=== PATIENT | female | born 1985 | race Caucasian/White ===

== ENCOUNTER → 2016-08-30 | Outpatient (CLI) | payer BC ==
[2016-08-30 10:00] LABS: CH 30.8; CHCM 33.3; HCT 34.5 % (34.0-46.0); HDW 2.32; HGB 11.7 gm/dL (11.4-16.0); MCH 31.4 pg (25.0-35.0); MCHC 33.9 g/dL (31.0-37.0); MCV 92.8 fL (80.0-100.0); Mean Platelet Volume 9.9; RBC 3.72 m/uL (3.80-5.40); WBC 8.9 k/uL (3.8-10.6)
== END | disposition home or self-care (01) ==
LOC: LABWHC1 08:18
PROVIDERS: ATTEND Obstetrics & Gynecology
DX: Z34.82 Encounter for supervision of other normal pregnancy, second trimester (principal)
CPT/HCPCS: 36415; 82950; 85027

== ENCOUNTER 2016-10-17 10:44 | Inpatient (IN) | payer BC, OTHER ==
[2016-10-17] MEDS ORDERED: PNEUMONIA PROTOCOL UTILIZED 1 EACH MISC PO PRN ×2 (12:55→12:56)
[2016-10-17] MEDS: SODIUM CHLORIDE 0.9% 1,000 ML IV SCH (14:00)
[2016-10-17] MEDS: IPRATROPIUM-ALBUTEROL 3 ML NEB INHALATION PRN ×2 (14:10→21:36)
[2016-10-17 14:48] VITALS: BMI 34.2
[2016-10-17] MEDS ORDERED: predniSONE 20 MG TAB PO STA (15:41)
[2016-10-17] MEDS ORDERED: HEPARIN SODIUM,PORCINE 5,000 UNIT/ML 1 ML VIAL SQ SCH (16:00)
[2016-10-17 16:07] LABS: Basophils % (A) 0 %; CH 31.1; CHCM 33.7; Eosinophils # (A) 0.1 k/uL (0-0.7); Eosinophils % (A) 1 %; HCT 35.5 % (34.0-46.0); HDW 2.51; HGB 11.9 gm/dL (11.4-16.0); Luc # (Auto) 0.16; Luc % (Auto) 1; Lymphocytes # (A) 1.9 k/uL (1.0-4.8); Lymphocytes % (A) 16 %; MCH 31.1 pg (25.0-35.0); MCHC 33.6 g/dL (31.0-37.0); MCV 92.6 fL (80.0-100.0); Mean Platelet Volume 11.9; Monocytes # (A) 0.5 k/uL (0-1.0); Monocytes % (A) 4 %; Neutrophils # (A) 8.9 k/uL (1.3-7.7); Neutrophils % (A) 77 %; RBC 3.84 m/uL (3.80-5.40); RDW 13.2 % (11.5-15.5); WBC 11.6 k/uL (3.8-10.6); WBC (Perox) 12.18
[2016-10-17] MEDS: IPRATROPIUM-ALBUTEROL 3 ML NEB INHALATION SCH ×2 (16:15→20:03)
[2016-10-17 16:17] LABS: ALT 28 U/L (9-52); AST 34 U/L (14-36); Alkaline Phosphatase 110 U/L (38-126); Anion Gap 10 mmol/L; Blood Urea Nitrogen 3 mg/dL (7-17); Calcium 10.7 mg/dL (8.4-10.2); Carbon Dioxide 21 mmol/L (22-30); Chloride 106 mmol/L (98-107); Glucose 95 mg/dL (74-99); Non-African American GFR(MDRD) >60 (>60 ml/min/1.73 sqM); Potassium 3.4 mmol/L (3.5-5.1); Sodium 137 mmol/L (137-145); Total Bilirubin 0.5 mg/dL (0.2-1.3); Total Protein 6.5 g/dL (6.3-8.2)
--- NOTE | 2016-10-17 16:30 | P.OBCN ---
History of Present Illness Consult date: 10/17/16 Requesting physician: Herman Nunez Reason for consult: other (31 weeks 3 days with influenza B and bronchitis) Chief complaint: shortness of breath and cough History of present illness: 31 year old presented to her pcp with cough for a week and general fatigue. no fever/chills, N/V, body aches. good movement, no contractions. She has had an uncomplicated and care with Dr Coffey. Review of Systems All systems: negative Constitutional: Denies chills, Denies fever Eyes: denies blurred vision, denies pain Ears, nose, mouth and throat: Denies headache, Denies sore throat Cardiovascular: Reports shortness of breath, Denies chest pain Respiratory: Reports cough, Reports wheezing Gastrointestinal: Denies abdominal pain, Denies diarrhea, Denies nausea, Denies vomiting Genitourinary: Denies dysuria, Denies hematuria Musculoskeletal: Denies myalgias Integumentary: Denies pruritus, Denies rash Neurological: Denies numbness, Denies weakness Psychiatric: Denies anxiety, Denies depression Endocrine: Denies fatigue, Denies weight change Past Medical History Past Medical History: No Reported History History of Any Multi-Drug Resistant Organisms: None Reported Additional Past Surgical History / Comment(s): leep procedure and sinus surgery Past Anesthesia/Blood Transfusion Reactions: No Reported Reaction Past Psychological History: Anxiety Additional Psychological History / Comment(s): pt is weaned off meds for duration of . using support systems for now. " hasnt been too bad" Smoking Status: Current every day smoker Past Alcohol Use History: None Reported Past Drug Use History: None Reported - Past Family History Mother Family Medical History: No Reported History Father Family Medical History: Hyperlipidemia, Hypertension Medications and Allergies Home Medications Medication Instructions Recorded Confirmed Type Acetaminophen Tab [Tylenol Tab] 500 mg PO Q6H 10/17/16 10/17/16 History Albuterol Nebulized [Ventolin 2.5 mg INHALATION RT-Q6H PRN 10/17/16 10/17/16 History Nebulized] Pnv with Ca,No.72/Iron/FA [Pnv 1 tab PO DAILY 10/17/16 10/17/16 History Plus Multivit Tab] diphenhydrAMINE HCL [Benadryl] 50 mg PO HS 10/17/16 10/17/16 History Allergies Allergy/AdvReac Type Severity Reaction Status Date / Time Sulfa (Sulfonamide Allergy Severe Rash/Hives Verified 10/17/16 14:09 Antibiotics) azithromycin [From Zithromax] AdvReac Intermediate Nausea & Verified 10/17/16 14 :09 Vomiting loratadine [From Claritin] AdvReac Intermediate Unknown Verified 10/17/16 14:09 Childhood Exam Osteopathic Statement: *. No significant issues noted on an osteopathic structural exam other than those noted in the History and Physical/Consult. - Vital Signs Vital signs: Vital Signs Temp Pulse Pulse Resp BP Pulse Ox 10/17/16 16:16 76 10/17/16 15:55 98.4 F 79 19 146/78 94 L 10/17/16 14:27 82 10/17/16 14:11 76 10/17/16 11:39 97.1 F L 97 20 131/96 96 Intake and Output 10/17/16 10/17/16 10/17/16 06:59 14:59 22:59 Intake Total 250 Balance 250 Intake: Oral 250 Other: # Voids 2 Weight 92 kg Patient Weight 10/18/16 06:59 Weight 92 kg Abdomen: soft, gravid, nontender, palpable movement Extremeties: neg yenifer's Results Result Diagrams: 10/17/16 13:36 10/17/16 13:36 Abnormal Lab Results - Last 24 Hours (Table) 10/17/16 10/17/16 10/17/16 Range/Units 13:36 13:36 13:36 WBC 11.6 H (3.8-10.6) k/uL Neutrophils # 8.9 H (1.3-7.7) k/uL Potassium 3.4 L (3.5-5.1) mmol/L Carbon Dioxide 21 L (22-30) mmol/L BUN 3 L (7-17) mg/dL Calcium 10.7 H (8.4-10.2) mg/dL C-Reactive Protein 18.8 H (<10.0) mg/L Influenza Type B (PCR) (Not Detectd) 10/17/16 Range/Units 13:45 WBC (3.8-10.6) k/uL Neutrophils # (1.3-7.7) k/uL Potassium (3.5-5.1) mmol/L Carbon Dioxide (22-30) mmol/L BUN (7-17) mg/dL Calcium (8.4-10.2) mg/dL C-Reactive Protein (<10.0) mg/L Influenza Type B (PCR) Detected H (Not Detectd) Assessment and Plan (1) Influenza B Status: Acute (2) Bronchitis Status: Acute (3) Third trimester at less than 36 weeks Status: Acute Plan: 1. I counselled the patient on the safety of chest x-ray in and she is willing to have one 2. we discussed Dr Nunez's plan of oral steroids and the safety of this in 3. I would recommend Tamiflu for her even though the time of symptom onset is a week. The recommendation is still to start tamiflu in the patient 4. NST every shift.
--- NOTE | 2016-10-17 16:55 | HP ---
DATE OF ADMISSION: 10/17/2016 Patient was directly admitted from Dr. Blanco Bridges's office. Dr. Blanco Bridges called me earlier today morning about this 31-year-old female, 32 weeks' , who was dealing with an upper respiratory illness along with asthma for about a week, and patient was having shortness of breath, wheezing and rhonchorous breath sounds. I was told patient has pneumonia, although clinically patient has rhonchorous breath sounds does not have any pneumonic infiltrate. Patient is found to have influenza B here. Patient was coughing, unable to bring up anything. Patient appears to have asthmatic bronchitis, although she does not exactly need antibiotics. I will go ahead and continue with Rocephin because of her status. Also, as we are not getting a chest x-ray, I do not strongly believe patient will need a chest x-ray. Because of her status, because of the radiation exposure concern, we will not obtain any chest x-ray at this point of time. Patient will be started on Tamiflu. Patient denied any fever or chills. Cough as mentioned above. I do not have any laboratory data available yet. Patient's basic lab data was already ordered. Sputum cultures were ordered and blood cultures were ordered. Other lab data is unavailable. Patient will be started on Tamiflu as well. REVIEW OF SYSTEMS: CONSTITUTIONAL: No fever, no malaise, no fatigue. HEENT: No recent visual problems or hearing problems. Denied any sore throat. CARDIOVASCULAR: No chest pain, orthopnea, PND, no palpitations, no syncope. PULMONARY: As described in HPI. GASTROINTESTINAL: No diarrhea, no nausea, no vomiting, no abdominal pain. Normoactive bowel sounds. NEUROLOGICAL: No headaches, no weakness, no numbness. HEMATOLOGICAL: Denies any bleeding or petechiae. GENITOURINARY: Denies any burning micturition, frequency, or urgency. MUSCULOSKELETAL/RHEUMATOLOGICAL: Denies any joint pain, swelling, or any muscle pain. ENDOCRINE: Denies any polyuria or polydipsia. The rest of the 14 point review of systems is negative. Home medications include: 1. Albuterol. 2. Diphenhydramine. 3. Acetaminophen. 4. Multivitamin supplementation. PAST MEDICAL HISTORY: Asthma. SOCIAL HISTORY: Patient does smoke, continues to smoke. Denied any alcohol abuse or any drug abuse. FAMILY HISTORY: Denied any family history of hypertension or diabetes mellitus. PHYSICAL EXAMINATION: VITAL SIGNS: Temperature 97.1, pulse of 97, respiratory rate of 20. Blood pressure is 131/76. Saturating at 96% on room air. GENERAL: The patient is alert and oriented x3, not in any acute distress. Well developed, well nourished. HEENT: Pupils are round and equally reacting to light. EOMI. No scleral icterus. No conjunctival pallor. Normocephalic, atraumatic. No pharyngeal erythema. No thyromegaly. CARDIOVASCULAR: S1 and S2 present. No murmurs, rubs, or gallops. PULMONARY: Patient has bilateral rhonchorous breath sounds with expiratory wheezing. No crackles were appreciated. Patient does not have any bronchophony or egophony. ABDOMEN: Patient is at 32 weeks. Bowel sounds are present. MUSCULOSKELETAL: No joint swelling or deformity. EXTREMITIES: No cyanosis, clubbing, or pedal edema. NEUROLOGICAL: Gross neurological examination did not reveal any focal deficits. SKIN: No rashes. LABORATORY DATA: None available. We are not doing a chest x-ray at this point of time because of her status. ASSESSMENT AND PLAN: 1. Status asthmaticus or acute asthma exacerbation. Patient appears to have chronic intermittent asthma. I cannot grade the severity of chronic intermittent asthma, as I am not her primary care physician. Patient will be started on systemic steroids in the form of oral prednisone. Albuterol ipratropium will be continued. Patient is on Rocephin at this point of time, although there is no overt evidence that patient has bacterial bronchitis or pneumonia. Will not discharge her on any antibiotic upon discharge. 2. , 32 weeks, because of which I consulted OB Service. 3. Nicotine abuse. Counseling was provided.
[2016-10-17] MEDS: ACETAMINOPHEN TAB 325 MG TAB PO PRN (17:30)
[2016-10-17] MEDS: OSELTAMIVIR 75 MG CAP PO SCH (21:16)
--- NOTE | 2016-10-17 22:12 | XR ---
EXAMINATION TYPE: XR chest 2V DATE OF EXAM: 10/17/2016 8:15 PM COMPARISON: NONE HISTORY: Bronchitis, cough TECHNIQUE: Frontal and lateral views of the chest are obtained. FINDINGS: There is no focal air space opacity, pleural effusion, or pneumothorax seen. The cardiac silhouette size is within normal limits. The osseous structures are intact. IMPRESSION: No acute cardiopulmonary process.
[2016-10-18] MEDS: SODIUM CHLORIDE 0.9% 1,000 ML IV SCH (01:47)
[2016-10-18] MEDS: ACETAMINOPHEN TAB 325 MG TAB PO PRN (06:27)
[2016-10-18] MEDS: OSELTAMIVIR 75 MG CAP PO SCH (08:12)
--- NOTE | 2016-10-18 10:57 | P.PN ---
Progress Note - Text 31 year old at 31 weeks 4 days admitted with influenza B and possible exacerbation of asthma/bronchitis. She is on oral steroids, tamiflu, breathing treatments, Rocephin IV. Feeling better today but still coughing and expiratory wheezes. NSTs have been reactive and she will continue to get those every shift until discharge.
[2016-10-18] MEDS: IPRATROPIUM-ALBUTEROL 3 ML NEB INHALATION SCH ×2 (11:05→11:08)
[2016-10-18] MEDS ORDERED: predniSONE 20 MG TAB PO SCH (11:15)
[2016-10-18 14:18] VITALS: BP 140/80; PULSE 72; RESP 18; TEMP 98.1
--- NOTE | 2016-10-18 20:09 | DS ---
DATE OF ADMISSION: 10/17/2016 DATE OF DISCHARGE: 10/18/2016 The patient is a pleasant 31-year-old female admitted from Dr. Blanco Bridges's office for asthma exacerbation. Patient had significant improvement in her respiratory status. She is still wheezing a little bit and still getting short of breath upon ambulation, although patient is saturating well and wanted to be discharged. The patient will be discharged on weaning dose of steroids. We did get a chest x-ray which did not show any pneumonic process. Patient has bronchitis secondary to influenza B. The patient will be discharged on Tamiflu. I do not believe patient has any bacterial bronchitis, because of which I do not believe patient will need any antibiotics at this point of time. Patient will continue her albuterol and we will add Symbicort to her inhalers. Once she is done with systemic steroids she can start using ( ). The patient was seen and examined on the day of discharge. GENERAL: The patient is alert and oriented x3, not in any acute distress. Well developed, well nourished. HEENT: Pupils are round and equally reacting to light. EOMI. No scleral icterus. No conjunctival pallor. Normocephalic, atraumatic. No pharyngeal erythema. No thyromegaly. CARDIOVASCULAR: S1 and S2 present. No murmurs, rubs, or gallops. PULMONARY: Minimal expiratory wheezing. Rhonchorous breath sounds yesterday which improved today. ABDOMEN: Soft, nontender, nondistended, normoactive bowel sounds. No palpable organomegaly. MUSCULOSKELETAL: No joint swelling or deformity. EXTREMITIES: No cyanosis, clubbing, or pedal edema. NEUROLOGICAL: Gross neurological examination did not reveal any focal deficits. SKIN: No rashes. LABORATORY DATA: Significant for elevated WBC count of 11,600, that is from yesterday and the systemic steroids. ASSESSMENT AND PLAN: 1. Acute asthma exacerbation status asthmaticus and chronic intermittent asthma. 2. at 32 weeks. 3. Influenza B. 4. Bronchitis. 5. Nicotine abuse for which counseling was provided. Patient will be discharged today. Patient will follow with Dr. Blanco Bridges in 3 to 5 days. Activity as tolerated. Regular diet. Spent greater than 35 minutes in total discharge process.
== END 2016-10-18 14:59 | disposition home or self-care (01) | DRG 781 ==
LOC: 6PED 10:49
PROVIDERS: ADMIT Internal Medicine; ATTEND Internal Medicine
DX: O99.513 Diseases of the respiratory system complicating pregnancy, third trimester (principal); J45.22 Mild intermittent asthma with status asthmaticus; J10.1 Influenza due to other identified influenza virus with other respiratory manifestations; O99.333 Smoking (tobacco) complicating pregnancy, third trimester; F17.200 Nicotine dependence, unspecified, uncomplicated; F41.9 Anxiety disorder, unspecified; Z79.899 Other long term (current) drug therapy; Z3A.32 32 weeks gestation of pregnancy
CPT/HCPCS: 71020; 80053; 85025; 86140; 87040; 87502; 94640

== ENCOUNTER 2016-12-03 01:16 | Inpatient (IN) | payer OTHER ==
[2016-12-03] MEDS ORDERED: OXYTOCIN 10 UNIT/ML 1 ML VIAL IM PRN (01:36)
[2016-12-03] MEDS ORDERED: TERBUTALINE 1 MG/ML VIAL SQ PRN (01:36)
[2016-12-03] MEDS ORDERED: METHYLERGONOVINE 0.2 MG/ML 1 ML AMP IM PRN (01:36)
[2016-12-03] MEDS ORDERED: CARBOPROST TROMETHAMINE 250 MCG/ML 1 ML AMP IM PRN (01:36)
[2016-12-03] MEDS ORDERED: LIDOCAINE 1% (PF) 10 MG/ML (30 ML SDV) SQ PRN (01:36)
[2016-12-03] MEDS ORDERED: LACTATED RINGERS 1,000 ML IV SCH (01:45)
[2016-12-03] MEDS ORDERED: OXYTOCIN 20 UNITS/1000 ML NS 1,000 ML IV SCH (01:45)
[2016-12-03 01:57] LABS: Basophils % (A) 0 %; CH 31.4; CHCM 34.7; Eosinophils # (A) 0.2 k/uL (0-0.7); Eosinophils % (A) 2 %; HCT 37.1 % (34.0-46.0); HDW 2.63; HGB 12.3 gm/dL (11.4-16.0); Luc # (Auto) 0.27; Luc % (Auto) 2; Lymphocytes # (A) 2.6 k/uL (1.0-4.8); Lymphocytes % (A) 22 %; MCH 30.1 pg (25.0-35.0); MCHC 33.1 g/dL (31.0-37.0); MCV 91.1 fL (80.0-100.0); Mean Platelet Volume 10.5; Monocytes # (A) 0.6 k/uL (0-1.0); Monocytes % (A) 5 %; Neutrophils # (A) 8.1 k/uL (1.3-7.7); Neutrophils % (A) 69 %; RBC 4.07 m/uL (3.80-5.40); RDW 13.6 % (11.5-15.5); WBC 11.8 k/uL (3.8-10.6); WBC (Perox) 12.87
[2016-12-03 02:05] LABS: Appearance,Urine Turbid (Clear); Bilirubin,Urine Negative (Negative); Glucose,Urine (UA) Negative (Negative); INR 0.9 (<1.1); Ketones,Urine Negative (Negative); Leukocyte Esterase,Urine Large (Negative); Mucus,Urine Rare /hpf; Nitrite,Urine Negative (Negative); PH, Urine 7.5 (5.0-8.0); Partial Thromboplastin Time 24.6 sec (22.0-30.0); Particle Count 19892; Protein,Urine 1+ (Negative); Prothrombin Time 9.3 sec (9.0-12.0); RBC,Urine >182 /hpf (0-5); Squamous Epithelial Cell,Urine 30 /hpf (0-4); UA Billing (MACRO vs. MICRO) MICRO; Urobilinogen,Urine <2.0 mg/dL (<2.0); WBC,Urine 146 /hpf (0-5)
[2016-12-03 02:11] LABS: ALT 34 U/L (9-52); AST 33 U/L (14-36); Blood Urea Nitrogen 7 mg/dL (7-17); LDH 493 U/L (313-618); Non-African American GFR(MDRD) >60 (>60 ml/min/1.73 sqM); Uric Acid 4.9 mg/dL (3.7-7.4)
[2016-12-03] MEDS ORDERED: fentaNYL (PF) 50 MCG/ML 5 ML AMP ONE (02:16)
[2016-12-03] MEDS ORDERED: BUPIVACAINE (PF) 0.25% 30 ML VIAL ONE (02:16)
[2016-12-03] MEDS ORDERED: SODIUM CHLORIDE 0.9% 100 ML BAG ONE (02:16)
[2016-12-03] MEDS ORDERED: SODIUM CHLORIDE 0.9% IVPB STA (02:25)
[2016-12-03] MEDS ORDERED: METHYLPREDNISOLONE SOD SUCCI IVPB STA (02:25)
[2016-12-03] MEDS ORDERED: methylPREDNISolone SOD SUCCI 125 MG/2 ML VIAL IV ONE (02:30)
[2016-12-03] MEDS ORDERED: methylPREDNISolone SOD SUCCI 125 MG/2 ML VIAL IM STA (02:40)
[2016-12-03] MEDS ORDERED: methylPREDNISolone SOD SUCCI 125 MG/2 ML VIAL IV STA (02:43)
--- NOTE | 2016-12-03 02:50 | P.HPOB ---
History of Present Illness H&P Date: 12/03/16 Chief Complaint: Contractions. This patient is a pleasant 31-year-old 2 para 1 female estimated date of confinement 12/16/2016 estimated gestational age 38 and one sevenths weeks who presents to labor and delivery with complaints of contractions since about midnight. Patient was 1-2 cm dilated and office is now 4-5 cm dilated on admission found to be in active labor. care is per Dr. Cfofey. It appears to be uncomplicated with the exception of asthma and history of H1N1. Patient states that she was on steroids for a prolonged period of time most recently. She was placed on Tamiflu at that time and did stop smoking. On admission patient's blood pressures are elevated 160 to 170s over 90s to 100s. Patient states she has not been feeling well most of the day. Patient's blood pressures at her last 2 visits are 130s over 80s and she denies a history of hypertension. Review of Systems Constitutional: Reports chronic headaches Ears, nose, mouth and throat: Denies headache, Denies sore throat Cardiovascular: Denies chest pain, Denies shortness of breath Respiratory: Reports as per HPI Gastrointestinal: Reports heartburn Genitourinary: Reports Menstruation: Reports amenorrhea Musculoskeletal: Denies myalgias Integumentary: Denies pruritus, Denies rash Neurological: Denies numbness, Denies weakness Psychiatric: Denies anxiety, Denies depression Endocrine: Denies fatigue, Denies weight change Past Medical History Past Medical History: No Reported History, Asthma Additional Past Medical History / Comment(s): Patient has a history of migraine headaches. History of Any Multi-Drug Resistant Organisms: None Reported Additional Past Surgical History / Comment(s): leep procedure and sinus surgery Past Anesthesia/Blood Transfusion Reactions: No Reported Reaction Past Psychological History: Anxiety Additional Psychological History / Comment(s): pt is weaned off meds for duration of . using support systems for now. " hasnt been too bad" Smoking Status: Former smoker Past Alcohol Use History: None Reported Past Drug Use History: None Reported - Past Family History Mother Family Medical History: No Reported History Father Family Medical History: Hyperlipidemia, Hypertension Medications and Allergies Home Medications Medication Instructions Recorded Confirmed Type Pnv,Calcium 72/Iron/Folic Acid 1 tab PO DAILY 10/17/16 12/03/16 History [Pnv Plus Multivit Tab] Allergies Allergy/AdvReac Type Severity Reaction Status Date / Time Sulfa (Sulfonamide Allergy Severe Rash/Hives Verified 12/03/16 01:28 Antibiotics) azithromycin [From Zithromax] AdvReac Intermediate Nausea & Verified 12/03/16 01 :28 Vomiting loratadine [From Claritin] AdvReac Intermediate Unknown Verified 12/03/16 01:28 Childhood Exam - Vital Signs Vital signs: Vital Signs Temp Pulse Resp BP 12/03/16 01:48 97.6 F 72 18 167/103 12/03/16 01:32 97.6 F 72 18 161/103 Intake and Output 12/02/16 12/02/16 12/03/16 14:59 22:59 06:59 Other: Weight 97.522 kg Patient Weight 12/03/16 06:59 Weight 97.522 kg - OBG Physical Exam Abdomen: bowel sounds normal, no diffuse tenderness, no bruit present, no guarding noted, no hepatomegaly, no splenomegaly, no mass Vulva: both: normal Vagina: normal moisture, no discharge Cervix: Cervix is 7 cm dilated completely effaced -2 station. Uterus: enlarged (Fundal height is consistent with a term .) Results blood work shows she is A positive, rubella immune, hepatitis B negative, patient's had previous exposure to toxoplasmosis, cystic fibrosis was negative, Result Diagrams: 12/03/16 01:45 12/03/16 01:45 Abnormal Lab Results - Last 24 Hours (Table) 12/03/16 12/03/16 Range/Units 01:45 01:45 WBC 11.8 H (3.8-10.6) k/uL Neutrophils # 8.1 H (1.3-7.7) k/uL Urine Appearance Turbid H (Clear) Urine Protein 1+ H (Negative) Urine Blood Large H (Negative) Ur Leukocyte Esterase Large H (Negative) Urine RBC >182 H (0-5) /hpf Urine WBC 146 H (0-5) /hpf Urine WBC Clumps Few H (None) /hpf Ur Squamous Epith Cells 30 H (0-4) /hpf Urine Mucus Rare H (None) /hpf Assessment and Plan (1) Third trimester Narrative/Plan: This is a pleasant 31-year-old 2 para 1 female 38 and one sevenths weeks gestation in active labor. Patient also has significant hypertension. Preeclampsia lab work is negative however she does have 1+ protein (with a contaminated urine). Patient also has significant steroid exposure in the third trimester. Plan at this time is pain control, treatment of her hypertension with labetalol, stress dose steroids in labor, and magnesium sulfate administration. I've discussed the current treatment plan with the patient and her family and they understand. Status: Acute (2) Hypertension affecting in third trimester Status: Acute (3) Maternal steroid exposure in third trimester Status: Acute
[2016-12-03] MEDS: OXYTOCIN 20 UNITS/1000 ML NS 1,000 ML IV SCH ×2 (04:32→05:01)
--- NOTE | 2016-12-03 04:42 | P.PROBDLV ---
Vaginal Delivery Note - . Vaginal Delivery Note: Normal spontaneous vaginal delivery viable male infant Apgars 9 and 9 delivery time is 0430 hours. Please see dictated H&P for intimate details of this patient's admission. In brief summary this is a pleasant 31-year-old 2 para 1 female 38-4/7 weeks admitted to labor and delivery with complaints of contractions found to be in active labor. Patient also had significant blood pressure elevations that required IV labetalol. Patient artificial rupture membranes at 7 cm and an epidural placed at that time. She was given one dose of this eye a Medrol secondary to third trimester steroid use. Patient's labor progresses quickly she gets to complete. Patient pushes for approximately 15 minutes and pushes the head to the perineum. Posterior perineum was supported we have controlled delivery of 's head over the intact perineum. Mouth and nares are bulb suctioned. There is no evidence of a nuchal cord. With gentle downward traction we then have deliver the anterior posterior shoulder and rest this 's body. This is a vigorous viable male Apgars are 9 and 9 delivery time is 0430 hours. After delivery of the the umbilical cord is doubly clamped and cut appears to be trivascular. The placenta is then spontaneously delivered intact. Estimated blood loss is about 100 mL. Is a small periurethral lacerations does not require repair. and mother are stable in delivery room. There are no complications. All counts are correct 3. Patient was placed on magnesium sulfate and also on oral steroids taper.
[2016-12-03] MEDS ORDERED: HYDROCORTISONE 2.5% RECTAL CREAM 30 GM TUBE RECTAL PRN (04:44)
[2016-12-03] MEDS ORDERED: WITCH HAZEL 1 EACH MED..PAD TOPICAL PRN (04:44)
[2016-12-03] MEDS ORDERED: BENZOCAINE SPRAY 57GM TOPICAL PRN (04:44)
[2016-12-03] MEDS ORDERED: ACETAMINOPHEN TAB 325 MG TAB PO PRN (04:44)
[2016-12-03] MEDS ORDERED: ZOLPIDEM 5 MG TAB PO PRN (04:44)
[2016-12-03] MEDS ORDERED: diphenhydrAMINE 50 MG/ML 1 ML VIAL IVP PRN (04:44)
[2016-12-03] MEDS ORDERED: MAGNESIUM SULFATE-WATER PMX 4 GM in WATER FOR INJECTION 50 50ML.BAG IVPB ONE (04:44)
[2016-12-03] MEDS ORDERED: MAGNESIUM SULFATE-WATER PMX 20 GM in WATER FOR INJECTION 1 500ML.BAG IV SCH (04:44)
[2016-12-03] MEDS ORDERED: Acetaminophen-Codeine 300-30mg TAB PO PRN ×2 (04:44)
[2016-12-03] MEDS ORDERED: diphenhydrAMINE 25 MG CAP PO PRN (04:44)
[2016-12-03] MEDS ORDERED: SIMETHICONE 80 MG CHEWABLE PO PRN (04:44)
[2016-12-03] MEDS ORDERED: BISACODYL 10 MG SUPP RECTAL PRN (04:44)
[2016-12-03] MEDS ORDERED: LANOLIN CREAM 5 GM TUBE TOPICAL PRN (04:44)
[2016-12-03] MEDS: LABETALOL 200 MG TAB PO SCH ×2 (04:59→11:26)
[2016-12-03] MEDS: SENNOSIDES-DOCUSATE SODIUM 1 EACH TAB PO SCH ×2 (08:37→19:56)
[2016-12-03] MEDS: methylPREDNISolone 4 MG TAB TAPER PO SCH (11:24)
--- NOTE | 2016-12-03 12:28 | P.PNOBGVD ---
Subjective - Subjective Principal diagnosis: Status post vaginal delivery day #0 Interval history: Patient has been continued on magnesium sulfate at 2 g per hour due to preeclampsia diagnosed in labor. Her blood pressures have come down to normal. She was given 1 dose of labetalol shortly after delivery but now blood pressures are normal. Subsequent doses of labetalol have been held at this time. Patient is currently asymptomatic. Bleeding is moderate. Pain is well- controlled. She denies any headaches or blurry vision. She is attempting to breast-feed. She is also started on a Medrol Dosepak since she did get stress dose steroids in labor. Patient reports: Reports appetite normal, Reports voiding normally, Reports pain well controlled, Reports ambulating normally : doing well, nursing well Objective - Latest Vital Signs Latest vital signs: Vital Signs Temp Pulse Resp BP 12/03/16 10:00 97.1 F L 91 18 130/73 12/03/16 08:00 97.2 F L 85 16 126/71 12/03/16 06:44 98.4 F 97 14 132/78 12/03/16 06:14 98.4 F 97 16 132/78 12/03/16 05:44 98.4 F 90 14 135/93 12/03/16 05:29 100 16 156/97 12/03/16 05:14 98.7 F 95 16 166/82 12/03/16 04:59 88 16 172/79 12/03/16 04:44 98.4 F 94 16 167/100 12/03/16 01:48 97.6 F 72 18 167/103 12/03/16 01:32 97.6 F 72 18 161/103 Intake and Output 12/02/16 12/03/16 12/03/16 22:59 06:59 14:59 Intake Total 2750 Output Total 100 200 Balance 2650 -200 Intake: Intake, IV Titration 2750 Amount Lactated Ringers 1,000 ml 700 @ 125 mls/hr IV .Q8H OLAMIDE Rx#:[id number] Magnesium Sulfate-Water 50 Pmx 4 gm In Water For Injection 50 50ml.bag @ 150 mls/hr IVPB ONCE ONE Rx#:[id number] Oxytocin 20 Units/1000 ml 2000 Ns 1,000 ml @ Per Protocol IV .Q0M OLAMIDE Rx#: [id number] Output: Urine 200 Estimated Blood Loss 100 Other: # Voids 1 Weight 97.522 kg - Exam Extremities: Present: edema (Trace). Absent: tenderness Abdomen: Present: normal appearance, soft. Absent: distention, tenderness Uterus: Present: normal, firm. Absent: tenderness - Labs Labs: Abnormal Lab Results - Last 24 Hours (Table) 12/03/16 12/03/16 Range/Units 01:45 01:45 WBC 11.8 H (3.8-10.6) k/uL Neutrophils # 8.1 H (1.3-7.7) k/uL Urine Appearance Turbid H (Clear) Urine Protein 1+ H (Negative) Urine Blood Large H (Negative) Ur Leukocyte Esterase Large H (Negative) Urine RBC >182 H (0-5) /hpf Urine WBC 146 H (0-5) /hpf Urine WBC Clumps Few H (None) /hpf Ur Squamous Epith Cells 30 H (0-4) /hpf Urine Mucus Rare H (None) /hpf Assessment and Plan (1) Vaginal delivery Narrative/Plan: Impression is status post vaginal delivery day #0, preeclampsia on magnesium sulfate seizure prophylaxis. Plan is to discontinue the magnesium at this time. We'll observe blood pressures and give labetalol as needed. We'll continue to monitor at least until tomorrow. Current Visit: Yes Status: Acute Code(s): O80 - ENCOUNTER FOR FULL-TERM UNCOMPLICATED DELIVERY SNOMED Code(s): 218560390 (2) Preeclampsia Current Visit: Yes Status: Acute Code(s): O14.90 - UNSPECIFIED PRE-ECLAMPSIA , UNSPECIFIED TRIMESTER SNOMED Code(s): 881910625
[2016-12-03] MEDS: IBUPROFEN 600 MG TAB PO PRN (12:51)
[2016-12-04] MEDS: IBUPROFEN 600 MG TAB PO PRN ×2 (00:01→07:15)
[2016-12-04 00:24] VITALS: RESP 16
[2016-12-04] MEDS: LABETALOL 200 MG TAB PO SCH ×2 (00:26→09:23)
[2016-12-04] MEDS: SENNOSIDES-DOCUSATE SODIUM 1 EACH TAB PO SCH (07:16)
[2016-12-04 07:35] VITALS: BP 143/83; PULSE 71; TEMP 98
--- NOTE | 2016-12-04 09:03 | P.DS ---
Providers Date of admission: 12/03/16 01:32 Expected date of discharge: 12/04/16 Attending physician: Farheen Coffey Primary care physician: Farheen Coffey - Discharge Diagnosis(es) (1) Vaginal delivery Current Visit: Yes Status: Acute (2) Preeclampsia Current Visit: Yes Status: Acute Hospital Course: This is a 31-year-old female 2 para 1 at 38 and one sevenths weeks who presented in active labor. She did have elevated blood pressures upon arrival and was started on magnesium sulfate seizure prophylaxis along with 1 dose of labetalol. She was also given stress dose steroids during labor due to her recent history of steroid use for asthma. She is continued on Medrol Dosepak . She has not received any further doses of antihypertensives since delivery and her blood pressures have come down to more normal range. She did not sleep very well last night and does have a small headache this morning but feels is due to fatigue versus anything else. She denies any blurry vision or swelling in her face or hands. She does have a blood pressure cuff at home that she can use. Leading is slowing down. She is breast-feeding. Her vital signs are stable with blood pressures running in the 130s to 140s over 70s to 80s. Abdomen is soft with fundus firm and nontender. Extremities show negative Homans. Impression is status post vaginal delivery day #1, elevated blood pressures with possible preeclampsia, improving. Plan is to discharge home today. She will follow up in the office in approximately 1 week for a blood pressure check and then in 6 weeks for check. She will check her blood pressures at home. She will be given prescription for ibuprofen 600 mg every 6 hours as needed for pain. She already has a breast pump at home. She is advised to call the office and she has any further questions or concerns prior to her appointment time. Procedures: Spontaneous vaginal delivery of a viable male on 12/03/2016 Patient Condition at Discharge: Stable Plan - Discharge Summary New Discharge Prescriptions: New Acetaminophen Tab [Tylenol] 650 mg PO Q4HR PRN tab PRN Reason: Mild Pain Or Fever >= 100.5 Ibuprofen [Motrin] 600 mg PO Q6HR PRN #60 tab PRN Reason: Mild Pain Or Fever >= 100.5 methylPREDNISolone Dose Pack [Medrol Dose Pack] 4 mg PO DIRECTED #10 tab Continue Pnv,Calcium 72/Iron/Folic Acid [Pnv Plus Multivit Tab] 1 tab PO DAILY Discharge Medication List Pnv,Calcium 72/Iron/Folic Acid [Pnv Plus Multivit Tab] 1 tab PO DAILY 10/17/16 [History] Acetaminophen Tab [Tylenol] 650 mg PO Q4HR PRN tab 12/04/16 [Rx] Ibuprofen [Motrin] 600 mg PO Q6HR PRN #60 tab 12/04/16 [Rx] methylPREDNISolone Dose Pack [Medrol Dose Pack] 4 mg PO DIRECTED #10 tab [Rx] Follow up Appointment(s)/Referral(s): Farheen Coffey DO [Primary Care Provider] - 1 Week (1 week for BP check and 6 weeks for pp check) Activity/Diet/Wound Care/Special Instructions: Instructions 1. Do not begin any exercise program for 3 weeks. 2. Do not resume sexual relations for 3 weeks or longer if uncomfortable. 3. You may take tub baths or showers at any time. 4. You may use tampons if desired after 3 weeks. 5. Keep the area of episiotomy (stitches) clean and dry. 6. If you are not nursing, wear a good fitting, supportive bra during the day and limit fluid intake for at least 1 week to prevent breast engorgement. 7. Call the office, [phone], within the next week to make appointment for your 6 week checkup if it has not already been made. 8. Report any of the following occurrences to the doctor promptly: a. Heavy, excessive bleeding b. Chills, fever c. Burning or frequency of urination d. Pain or redness and breasts if nursing e. Increasing pain or swelling in episiotomy (stitches). In addition to the above instructions, the following additional should be followed: 1. No heavy lifting or straining (exercising) until after 6 week checkup. 2. Keep abdominal incision clean and dry: You may wear a dressing if more comfortable. 3. Make office appointment for 10 days after going home or as instructed by her doctor. Discharge Disposition: HOME SELF-CARE
[2016-12-04] MEDS: methylPREDNISolone 4 MG TAB TAPER PO SCH (09:24)
== END 2016-12-04 11:50 | disposition home or self-care (01) | DRG 775 ==
LOC: FBPOP 01:16 → 4FBP 01:32
PROVIDERS: ADMIT Obstetrics & Gynecology; ATTEND Obstetrics & Gynecology
PROC: 10E0XZZ Delivery of Products of Conception, External Approach (ICD-10-PCS; principal; 2016-12-03)
PROC: 00HU33Z Insertion of Infusion Device into Spinal Canal, Percutaneous Approach (ICD-10-PCS; 2016-12-03)
PROC: 3E0R3CZ (ICD-10-PCS; 2016-12-03)
DX: O14.94 Unspecified pre-eclampsia, complicating childbirth (principal); O99.344 Other mental disorders complicating childbirth; F41.9 Anxiety disorder, unspecified; J45.909 Unspecified asthma, uncomplicated; O99.52 Diseases of the respiratory system complicating childbirth; O71.82 Other specified trauma to perineum and vulva; Z37.0 Single live birth; Z3A.38 38 weeks gestation of pregnancy; Z87.891 Personal history of nicotine dependence; Z79.899 Other long term (current) drug therapy
CPT/HCPCS: 59025; 81001; 82565; 83615; 84450; 84460; 84520; 84550; 85025; 85610; 85730; 88307; 99213

== ENCOUNTER → 2020-01-27 | Outpatient (CLI) | payer BC ==
--- NOTE | 2020-01-27 08:11 | US ---
EXAMINATION TYPE: US gallbladder DATE OF EXAM: 01/27/2020 COMPARISON: NONE CLINICAL HISTORY: 34-year-old female R10.11 R upper quad pain. TECHNIQUE: Multiple sonographic images of the right upper quadrant are obtained. FINDINGS: EXAM MEASUREMENTS: Liver Length: 13.6 cm Gallbladder Wall: 0.3 cm CBD: 0.3 cm Right Kidney: 13.5 x 4.8 x 5.9 cm Pancreas: Suboptimal visualization of the pancreatic tail due to shadowing from bowel gas. Visualize d portions show no gross abnormal mobility. Liver: wnl Gallbladder: multiple small layering stones Evidence for sonographic Montes's sign: No CBD: wnl Right Kidney: upper pole complex cyst measures 7.8 x 6.3 x 6.6 cm. This appears to have some urinar y pleural based nodularity measuring up to 1.4 cm. No hydronephrosis. IMPRESSION: 1. Cholelithiasis without ancillary findings of acute cholecystitis. 2. A large right upper pole renal cyst measures 7.8 cm. This seems to be mildly complex with some int ernal nodularity measuring up to 1.4 cm. Renal mass protocol MRI recommended.
== END | disposition home or self-care (01) ==
LOC: RADUSWWP 06:55
PROVIDERS: ATTEND Family Medicine
DX: K80.20 Calculus of gallbladder without cholecystitis without obstruction (principal); N28.1 Cyst of kidney, acquired
CPT/HCPCS: 76705

== ENCOUNTER 2021-04-18 10:19 | Outpatient (CLI) | payer BC ==
[~2021-04-18 10:19] MED LIST: BAMLANIVIMAB (EUA) 700 MG, ETESEVIMAB (EUA) 1,400 MG in SODIUM CHLORIDE 0.9% 50 ML IVPB NR; SODIUM CHLORIDE 0.9% 50 ML IVPB NR; SODIUM CHLORIDE 0.9% 500 ML 500 ML in EMPTY BAG 1 BAG IV PRN
[2021-04-18 10:57] VITALS: RESP 16
[2021-04-18 11:38] VITALS: TEMP 97.4
[2021-04-18 12:04] VITALS: BP 129/88; PULSE 80
== END 2021-04-18 12:30 ==
LOC: PROCWHC3 10:19
PROVIDERS: ATTEND Family Medicine
DX: U07.1 COVID-19 (principal); E66.9 Obesity, unspecified; I11.9 Hypertensive heart disease without heart failure; Z87.891 Personal history of nicotine dependence; Z88.2 Allergy status to sulfonamides; Z88.1 Allergy status to other antibiotic agents; Z88.8 Allergy status to other drugs, medicaments and biological substances; Z68.32 Body mass index [BMI] 32.0-32.9, adult
CPT/HCPCS: 96360; J3490; M0243; 96361

== ENCOUNTER → 2022-03-05 | Outpatient (CLI) | payer BC, OTHER ==
--- NOTE | 2022-03-05 14:23 | CT ---
EXAMINATION TYPE: CT lumbar spine wo con DATE OF EXAM: 03/05/2022 COMPARISON: None HISTORY: Radiculopathy, lumbosacral region, radiation down left leg CT DLP: 1796.8 mGycm CONTRAST: None TECHNIQUE: CT of the lumbar spine is performed on a spiral scan at 3 mm thick sections. Reconstructed images are performed in the coronal and sagittal planes. FINDINGS: T12-L1: No focal disc herniation or significant disc bulge is evident. No spinal canal stenosis or neural foraminal stenosis is present. L1-L2: No focal disc herniation or significant disc bulge is evident. No spinal canal stenosis or n eural foraminal stenosis is present L2-L3: No focal disc herniation or significant disc bulge is evident. No spinal canal stenosis or n eural foraminal stenosis is present L3-L4: No focal disc herniation or significant disc bulge is evident. No spinal canal stenosis or n eural foraminal stenosis is present L4-L5: Minimal disc bulge is present with anterior thecal sac contact. No spinal canal stenosis or ne ural foraminal stenosis is present. L5-S1: There is left paracentral disc bulge with displacement of the exiting left S1 nerve root at L5 -S1. Correlate with left S1 radicular symptoms. Vertebral alignment appears normal. There is a punctate nonobstructing renal stone inferior pole righ t kidney. There is a superior pole left kidney cyst measuring 7.4 cm and 4 Hounsfield units. IMPRESSION: 1. Left paracentral disc bulge at L5-S1 displacing the left S1 nerve root. Correlate with radicular s ymptoms. 2. Mild disc bulge L4-5 with anterior thecal sac flattening without stenosis. 3. Nonobstructing inferior pole punctate left renal stone. 4. Right renal cyst
== END | disposition home or self-care (01) ==
LOC: RADCTMAIN 11:39
PROVIDERS: ATTEND Family Medicine
DX: M51.16 Intervertebral disc disorders with radiculopathy, lumbar region (principal); N28.1 Cyst of kidney, acquired
CPT/HCPCS: 72131

== ENCOUNTER → 2022-04-04 | Outpatient (CLI) | payer OTHER ==
--- NOTE | 2022-04-06 07:16 | MR ---
EXAMINATION TYPE: MR lumbar spine wo con DATE OF EXAM: 04/04/2022 COMPARISON: CT lumbar spine March 05, 2022 HISTORY: Severe low back pain that radiates down left leg for 3 months. TECHNIQUE: Multiplanar, multisequence imaging of the lumbar spine is performed without IV contrast. FINDINGS: Sagittal images of the lumbar spine show vertebral body heights to remain satisfactory. Ali gnment is stable and straightened. Disc desiccation L4-L5 and L5-S1 levels without significant disc s pace narrowing. The conus medullaris is normal in position and signal ending superior L1 level. The bone marrow signal intensity is within normal limits. Axial images show T12-L1 through L3-L4 levels to appear within normal limits. Axial images at the L4-L5 level show mild facet arthropathy bilaterally. Spinal canal is preserved. B ilateral neural foramina are patent. Axial images at L5-S1 level redemonstrate broad-based left foraminal disc protrusion measuring 2.1 c m transversely by 0.7 cm AP diameter effacing the lateral recess along with central left S1 nerve and minimally effacing the left anterolateral thecal sac. Right-sided neural foramen is patent. There is a large thin-walled cyst from the upper pole right kidney partially imaged correlating with recent CT. IMPRESSION: Stable eccentric disc herniation L5-S1 level effaces central left S1 nerve correlating wi th recent CT.
== END | disposition home or self-care (01) ==
LOC: RADMRIMAIN 21:15
PROVIDERS: ATTEND Physical Medicine & Rehabilitation
DX: M51.17 Intervertebral disc disorders with radiculopathy, lumbosacral region (principal)
CPT/HCPCS: 72148

== ENCOUNTER → 2024-10-14 | Outpatient (CLI) | payer BC ==
--- NOTE | 2024-10-14 20:09 | MR ---
EXAMINATION TYPE: MR brain wo con DATE OF EXAM: 10/14/2024 8:00 PM COMPARISON: 05/13/2010. 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 TECHNIQUE: Multi planar, multi sequence imaging was performed through the brain including: T1, T2, In version recovery, Diffusion weighted imaging, and gradient echo imaging. No gadolinium was given. FINDINGS: The duran-white junctions, ventricular system, basal cisterns appear unremarkable. Midline structures show no abnormality. Diffusion-weighted imaging shows no evidence of restricted diffusion. The suscep tibility weighted images do not reveal any evidence for micro-hemorrhage. The bone marrow signal is within normal limits. Paranasal sinuses and mastoid air cells: No bilateral retention cysts in the maxillary sinuses larges t on the right measuring up to 18 mm and on the left measuring up to 12 mm. Visualized orbits: Orbital contents are intact. IMPRESSION: 1. No evidence of intracranial mass or acute/subacute infarct. 2. Bilateral maxillary sinus retention cysts. [facility], , 10/14/2024 8:07 PM
== END | disposition home or self-care (01) ==
LOC: RADMRIMAIN 19:45
PROVIDERS: ATTEND Emergency Medicine
DX: G44.009 Cluster headache syndrome, unspecified, not intractable (principal); J34.1 Cyst and mucocele of nose and nasal sinus
CPT/HCPCS: 70551